=== PATIENT | female | born 1990 | race Two or more races ===

== ENCOUNTER 2019-06-16 15:50 | Emergency (ER) | payer MEDICAID, OTHER ==
[~2019-06-16] VITALS: Ht 165.1 cm; Wt 72.6 kg
[2019-06-16 15:58] VITALS: BP 147/87
== END 2019-06-16 17:33 | disposition home or self-care (01) ==
LOC: ER 15:50
DX: J20.9 Acute bronchitis, unspecified (principal)

== ENCOUNTER 2021-01-22 16:14 | Emergency (ER) | payer MEDICAID ==
[~2021-01-22] VITALS: Ht 165.1 cm; Wt 73.5 kg
[2021-01-22 16:20] VITALS: BP 151/84
[2021-01-22] MEDS ORDERED: SODIUM CHLORIDE 0.9% 1,000 ML IV ONE (17:30)
[2021-01-22] MEDS ORDERED: LORazepam 0.5 MG TAB PO ONE (17:30)
[2021-01-22 18:50] LABS: Basophils # (auto) 0 10 ^3/uL (0-0.2); Basophils % (auto) 0.6 % (0.0-2.0); Eosinophils # (auto) 0.1 10 ^3/uL (0-0.8); Eosinophils % (auto) 1.3 % (0.0-7.0); Hematocrit 42.7 % (36.0-46.0); Lymphocytes # (auto) 3.7 10 ^3/uL (0.4-5.4); Lymphocytes % (auto) 43.6 % (10.0-50.0); Mean Corpuscular Hemoglobin 27.5 pg (28.0-32.0); Mean Corpuscular Hgb Conc. 32.8 g/dL (32.0-36.0); Mean Corpuscular Volume 83.8 fL (80.0-100.0); Monocytes # (auto) 0.6 10 ^3/uL (0-1.3); Monocytes % (auto) 7.6 % (0.0-12.0); Neutrophils % (auto) 46.9 % (37.0-80.0); Nucleated Red Blood Cells % 0.1 %; Red Cell Distribution Width 12.5 % (11.8-14.3); White Blood Cell 8.5 10^3/uL (4.4-10.8)
[2021-01-22 19:10] LABS: Albumin 3.8 g/dL (3.4-5.0); BUN/Creatinine Ratio 16.2; Calcium 9.6 mg/dL (8.5-10.1); Potassium 4.1 mmol/L (3.5-5.1)
[2021-01-22 19:13] LABS: Bilirubin, Total 0.3 mg/dL (0.2-1.0)
== END 2021-01-23 01:01 | disposition left against medical advice (07) ==
LOC: ER 16:14
DX: R06.00 Dyspnea, unspecified (principal); E11.9 Type 2 diabetes mellitus without complications; I10 Essential (primary) hypertension; F41.8 Other specified anxiety disorders
CPT/HCPCS: 36415; 71046; 80053; 83735; 84702; 85025; 85379; 93005

== ENCOUNTER 2023-09-20 04:54 | Emergency (ER) | payer MEDICAID ==
[~2023-09-20] VITALS: Ht 165.1 cm; Wt 63.6 kg
[2023-09-20] MEDS: ONDANSETRON ODT 4 MG TAB PO ONE (07:41)
[2023-09-20] MEDS: KETOROLAC TROMETH 60MG/2ML VIAL IM ONE (07:42)
[2023-09-20 07:48] LABS: Basophils # (auto) 0 10 ^3/uL (0-0.2); Basophils % (auto) 0.4 % (0.0-2.0); Eosinophils # (auto) 0.1 10 ^3/uL (0-0.8); Eosinophils % (auto) 1.4 % (0.0-7.0); Hematocrit 43.3 % (36.0-46.0); Hemoglobin 14.1 g/dL (12.2-16.2); Lymphocytes # (auto) 2.4 10 ^3/uL (0.4-5.4); Lymphocytes % (auto) 28.6 % (10.0-50.0); Mean Corpuscular Hemoglobin 27.7 pg (28.0-32.0); Mean Corpuscular Hgb Conc. 32.6 g/dL (32.0-36.0); Mean Corpuscular Volume 85.1 fL (80.0-100.0); Monocytes # (auto) 0.7 10 ^3/uL (0-1.3); Monocytes % (auto) 8.1 % (0.0-12.0); Neutrophils # (auto) 5.1 10 ^3/uL (1.6-8.6); Neutrophils % (auto) 61.5 % (37.0-80.0); Nucleated Red Blood Cells % 0.1 %; Red Blood Cells 5.09 10^6/uL (4.0-5.20); Red Cell Distribution Width 12.3 % (11.8-14.3); White Blood Cell 8.3 10^3/uL (4.4-10.8)
[2023-09-20 08:06] LABS: Urine Bacteria None Seen /hpf (None Seen)
[2023-09-20 08:14] LABS: Urine Blood TRACE /uL (Negative); Urine Clarity Clear (Clear); Urine Color Yellow (Yellow); Urine Mucus FEW (None Seen); Urine Protein, UAD TRACE (Negative); Urine Specific Gravity 1.031 (1.001-1.035); Urine Urobilinogen 3 mg/dL (Negative); Urine WBC 2 /hpf (0 - 5); Urine pH 5.5 (5.0-9.0)
[2023-09-20 08:38] LABS: Alanine Aminotransferase 38 U/L (7-40); Albumin 4.9 g/dL (3.2-4.8); Alkaline Phosphatase 72 U/L (46-116); Anion Gap 6 (5-15); Aspartate Aminotransferase 18 U/L (13-40); BUN/Creatinine Ratio 10.8 (10.0-20.0); Bilirubin, Total 0.6 mg/dL (0.2-1.0); Blood Urea Nitrogen 7 mg/dL (9-23); Calcium 9.8 mg/dL (8.5-10.1); Carbon Dioxide 26 mmol/L (20-30); Chloride 106 mmol/L (98-107); Glucose 113 mg/dL (74-106); Magnesium 1.9 mg/dL (1.6-2.6); Potassium 3.6 mmol/L (3.5-5.1); Sodium 138 mmol/L (136-145); Total Protein 7.9 g/dL (5.7-8.2)
[2023-09-20 08:56] LABS: Lipase 54 U/L (12-53)
[2023-09-20 09:30] VITALS: PULSE 77; RESP 14; O2SAT 98
[2023-09-20] MEDS ORDERED: NAP500T PO (09:50)
[2023-09-20 09:58] VITALS: BP 116/78; PULSE 74; RESP 16; TEMP 97.8; O2SAT 100
== END 2023-09-20 09:59 | disposition home or self-care (01) ==
LOC: ER 04:54
DX: R10.11 Right upper quadrant pain (principal); R10.2 Pelvic and perineal pain; E11.9 Type 2 diabetes mellitus without complications; Z88.0 Allergy status to penicillin; Z88.1 Allergy status to other antibiotic agents
CPT/HCPCS: 36415; 76705; 80053; 81001; 83690; 83735; 84702; 85025; 96372; 99285; J1885; Q0162

== ENCOUNTER 2023-11-16 19:26 | Emergency (ER) | payer MEDICAID ==
[~2023-11-16] VITALS: Ht 165.1 cm; Wt 69.8 kg
[~2023-11-16 19:26] MED LIST: NAP500T PO
[2023-11-16 22:50] VITALS: BP 129/88; PULSE 99; RESP 20; TEMP 97.7; O2SAT 95
== END 2023-11-16 22:56 | disposition home or self-care (01) ==
LOC: ER 19:26
DX: G89.18 Other acute postprocedural pain (principal); M79.671 Pain in right foot; E11.9 Type 2 diabetes mellitus without complications; Z88.0 Allergy status to penicillin; Z88.1 Allergy status to other antibiotic agents
CPT/HCPCS: 73630

== ENCOUNTER 2024-02-26 19:32 | Emergency (ER) | payer MEDICAID ==
[~2024-02-26] VITALS: Ht 165.1 cm; Wt 73.6 kg
[2024-02-26] MEDS: KETOROLAC TROMETH 60MG/2ML VIAL IM ONE (19:54)
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
[2024-02-26] MEDS ORDERED: TIZA4TAB9 PO (21:03)
[2024-02-26] MEDS ORDERED: IBUP-1456 PO (21:03)
[2024-02-26 21:31] VITALS: BP 123/79; PULSE 95; RESP 17; TEMP 97.6; O2SAT 100
== END 2024-02-26 21:46 | disposition home or self-care (01) ==
LOC: ER 19:32
DX: S13.4XXA Sprain of ligaments of cervical spine, initial encounter (principal); S93.601A Unspecified sprain of right foot, initial encounter; E11.9 Type 2 diabetes mellitus without complications; Z88.0 Allergy status to penicillin; Z88.1 Allergy status to other antibiotic agents; V49.40XA Driver injured in collision with unspecified motor vehicles in traffic accident, initial encounter; Y93.89 Activity, other specified; Y92.410 Unspecified street and highway as the place of occurrence of the external cause; Y99.8 Other external cause status
CPT/HCPCS: 72040; 73630; 96372; 99284; J1885

== ENCOUNTER 2024-03-11 16:05 | Emergency (ER) | payer MEDICAID ==
[~2024-03-11] VITALS: Ht 165.1 cm; Wt 70.4 kg
--- NOTE | 2024-03-11 17:23 | ED.PDOC ---
Musculoskeletal HPI Comments A 33 YEAR OLD FEMALE PRESENTS TO THE ED WITH COMPLAINT OF WOUND CHECK. PT HAD LEFT BUNION SURGERY DONE YESTERDAY AND PRESENTS TO ED FOR DRY BLOOD OF THE WOUND UNDERNEATH THE SPLINT. PT STATES SHE CALLED THE SURGEON AND PT WAS REFERRED TO ED. CURRENT PAIN LEVEL 10/10. PT HAS OXYCODONE AT HOME BUT HAS NOT FELT RELIEF. ALSO, PT C/O RIGHT FOOT SPLINT TOO TIGHT AND CAUSED HER RIGHT FOOT PAIN. PATIENT DENIES FEVER, CHILLS, SHORTNESS OF BREATH, CHEST PAIN, ABDOMINAL PAIN, NAUSEA, VOMITING, HEADACHE, OR OTHER COMPLAINTS. NO OTHER SYMPTOMS OR MODIFYING FACTORS AT THIS TIME. PATIENT IS ALERT, ORIENTED X 4, AND HAS STEADY GAIT. Chief Complaint: Lower Extremity Time Seen by MD: 17:04 Primary Care Provider: Judy Chatman Notes: Nurses Notes, Medications, Allergies Allergies: Coded Allergies: Penicillins (Verified Allergy, Severe, RASH, 06/16/19) Vancomycin (Verified Allergy, Unknown, 09/20/23) Home Meds Active Scripts Naproxen (NAPROSYN TABLET) 500 Mg Tb, 1 TAB PO BID PRN, #20 TAB 1 Refill Prov:TAMIE MASON MD 09/20/23 Information Source: Patient Mode of Arrival: Wheelchair Location: Left Extremity Location: Foot Timing: Days Severity: Moderate Able to Move Extremity: Yes Bear Weight: No Pain: Moderate Mechanism: None Circumstances: Preceding Wound Onset of Symptoms: After Trauma Symptoms: Pain DVT Risk Factors: NONE Last Tetanus: UTD Associated signs and symptoms: Foot pain (LEFT) Past Medical History PAST MEDICAL HISTORY: DM Surgical History (Other): 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 Family History Family History: Unknown Social History Smoker: Non-Smoker Alcohol: Denies ETOH Use Drugs: Denies Drug Use Lives In: Home Constitutional: denies: chills, diaphoresis, fatigue, fever, malaise, sweats, weakness, others EENTM: denies: blurred vision, double vision, ear bleeding, ear discharge, ear drainage, ear pain, ear ringing, eye pain, eye redness, hearing loss, mouth pain, mouth swelling, nasal discharge, nose bleeding, nose congestion, nose pain, photophobia, tearing, throat pain, throat swelling, voice changes, others Respiratory: denies: cough, hemoptysis, orthopnea, SOB at rest, shortness of breath, SOB with excertion, stridor, wheezing, others Cardiovascular: denies: chest pain, dizzy spells, diaphoresis, Dyspnea on exertion, edema, irregular heart beat, left arm pain, lightheadedness, palpitations, PND, syncope, others Gastrointestinal: denies: abdomen distended, abdominal pain, blood streaked bowels, constipated, diarrhea, dysphagia, difficulty swallowing, hematemesis, melena, nausea, poor appetite, poor fluid intake, rectal bleeding, rectal pain, vomiting, others Genitourinary: denies: abnormal vagina bleeding, burning, dyspareunia, dysuria, flank pain, frequency, hematuria, incontinence, pain, , vagina discharge, urgency, others Neurological: denies: dizziness, fainting, headache, left sided numbness, left sided weakness, numbness, paresthesia, pre-existing deficit, right sided numbness, right sided weakness, seizure, speech problems, tingling, tremors, weakness, others Musculoskeletal: reports: joint pain (LEFT FOOT PAIN ), others (LEFT FOOT P AIN); denies: back pain, gout, joint swelling, muscle pain, muscle stiffness, neck pain Integumetry: denies: bruises, change in color, change in hair/nails, dryness, laceration, lesions, lumps, rash, wounds, others Allergic/Immunocompromised: denies: Difficulty Healing, Frequent Infections, Hives, Itching, others Hematologic/Lymphatic: denies: anemia, blood clots, easy bleeding, easy bruising, swollen glands, others Endocrine: denies: excessive hunger, excessive sweating, excessive thirst, excessive urination, flushing, intolerance to cold, intolerance to heat, unexplained weight gain, unexplained weight loss, others Psychiatric: denies: anxiety, bipolar disorder, depression, hopeless, panic disorder, schizophrenia, sleepless, suicidal, others All Other Systems: Reviewed and Negative Physical Exam General Appearance: No Apparent Distress, Normal HEENT: Normal ENT Inspection, PERRL/EOMI, Pharynx Normal, TMs Normal Neck: Full Range of Motion, Non-Tender, Normal, Normal Inspection Respiratory: Chest Non-Tender, Lungs Clear, No Accessory Muscle Use, No Respiratory Distress, Normal Breath Sounds Cardiovascular: No Edema, No JVD, No Murmur, No Gallop, Normal Peripheral Pulses, Regular Rate/Rhythm Breast Exam: Deferred Gastrointestinal: No Organomegaly, Non Tender, No Pulsatile Mass, Normal Bowel Sounds, Soft Genitalia: Deferred Pelvic: Deferred Rectal: Deferred Extremities: Decreased range of motion, No calf tenderness, Normal capillary refill, Normal inspection, No pedal edema, Tender (ON LEFT GREAT TOE REGION, NO REDNESS, SWELLING AND DEFORMITY, INCISION WOUND HEALING, NO INFECTION SIGNS. NEUROVASCULAR INTACT. ) Musculoskeletal : Apperance: Normal Neurologic: Alert, tool maker II-XII nml as Tested, No Motor Deficits, Normal Affect, Normal Mood, No Sensory Deficits Cerebellar Function: Normal Reflexes: Normal Skin: Dry, Normal Color, Warm, Wounds (INCISION WOUND HEALING, NO BLEEDING AND BLOOD CLOTS, NO ERYTHEMA AND SWELLING ON INCISION REGION. ) Peripheral Pulses: 2+ carotid (R), 2+ carotid (L), 2+ dorsalis pedis (R), 2+ dorsalis pedis (L) Lymphatic: No Adenopathy Was a procedure done? Was a procedure done?: No Differential Diagnosis EXT Differential Diagnosis: Other (WOUND CHECK) X-Ray, Labs, Meds, VS Vital Signs Date Time Temp Pulse Resp B/P (MAP) Pulse Ox O2 Delivery O2 Flow Rate FiO2 03/11/24 16:44 98.9 82 16 126/89 (101) 100 X-Ray, Labs, Meds, VS Comment COURSE: EXTERNAL MEDICAL RECORDS REVIEWED: [NONE] INDEPENDENT HISTORIANS: [NONE] SOCIAL DETERMINANTS OF HEALTH: [NONE] LABS ORDERED: NONE REVIEWED AND INTERPRETED RESULTS: NONE IMAGING ORDERED: NONE TREATMENTS ORDERED: SPLINT WAS PLACED ON TOO TIGHT AFTER SURGERY, REMOVED HERE IN ED. WOUND HEALING WELL. NO BLEEDING, REDNESS, OR SWELLING. PT FELT IMMEDIATE RELIEF ONCE SPLINT WAS REMOVED AND NO LONGER NEEDED PAIN MEDS. NEW SPLINT PLACED ON LEFT LOWER EXTREMITY. PROCEDURES PERFORMED: NONE CRITICAL CARE TIME: NONE I HAVE DISCUSSED THE PATIENT WITH THE ATTENDING PHYSICIAN DR. MICHAEL BUTTS AND SHE AGREES WITH THE PATIENT'S PLAN OF CARE AND DISPOSITION. GIVEN THE HISTORY AND PRESENT ILLNESS OF THE PATIENT, AFTER REVIEWING LABS, IMAGING, AND COURSE OF TREATMENT ADMINISTERED DURING THEIR ED VISIT, THERE IS LOW SUSPICION FOR RED FLAG FINDINGS. BASED ON HISTORY OF PRESENT ILLNESS, AND PHYSICAL EXAM, PATIENT WILL BE DISCHARGED HOME. DISCUSSED PLAN FOR DISCHARGE HOME WITH RX. MEDICATION WARNINGS GIVEN. SHARED DECISION MAKING: DISCUSSED WITH PATIENT THAT THEIR WORKUP WAS NORMAL. PATIENT INSTRUCTED TO FOLLOW UP WITH PRIMARY CARE PROVIDER IN 1-2 DAYS FOR RE- EVALUATION OF SYMPTOMS. PATIENT VERBALIZES UNDERSTANDING TO RETURN TO ED FOR NEW OR WORSENING SYMPTOMS OR IF FOLLOW UP WITH PCP CANNOT BE OBTAINED. PATIENT FEELS COMFORTABLE GOING HOME AT THIS TIME. ALL QUESTIONS ADDRESSED AT TIME OF DISCHARGE. Time of 1ST Reevaluation: 17:20 Reevaluation 1ST: Improved Patient Education/Counseling: Diagnosis, Treatment, Need For Follow Up Family Education/Counseling: Diagnosis, Treatment, Need For Follow Up Medical Screening: No EMC Exist At This Time Departure 1 Departure Time of Disposition: 17:34 Impression: Primary Impression: Encounter for cast care Additional Impression: Encounter for wound re-check Disposition: 01 HOME / SELF CARE / HOMELESS Condition: Stable Additional Instructions: FOLLOW-UP WITH PCP IN 1 TO 2 DAYS. TAKE MEDICATIONS PRESCRIBED. RETURN TO ED FOR ANY NEW OR WORSENING SYMPTOMS. Discharged With: Self, Relative Critical Care Note Critical Care Time?: No Stability Stability form required: No Heart Score Heart Score: Heart Score Response (Comments) Value History N/A 0 EKG N/A 0 Age N/A 0 Risk Factors N/A 0 Troponin N/A 0 Total 0 I personally scribed for MALA RIVERA ([email or web address]) on 03/11/24 at 17:23. Electronically submitted by Iram Ga ([email or web address]). I personally scribed for MALA RIVERA ([email or web address]) on 03/11/24 at 17:24. Electronically submitted by Iram Ga ([email or web address]). MALA RIVERA Mar 11, 2024 17:23
[2024-03-11 17:26] VITALS: BP 126/89; PULSE 82; RESP 16; TEMP 98.9; O2SAT 100
== END 2024-03-11 17:45 | disposition home or self-care (01) ==
LOC: ER 16:05
DX: T81.89XA Other complications of procedures, not elsewhere classified, initial encounter (principal); M79.671 Pain in right foot; E11.9 Type 2 diabetes mellitus without complications; Z46.89 Encounter for fitting and adjustment of other specified devices; Z48.01 Encounter for change or removal of surgical wound dressing; Z98.890 Other specified postprocedural states; Z88.0 Allergy status to penicillin; Z88.1 Allergy status to other antibiotic agents; Z79.899 Other long term (current) drug therapy; Y92.89 Other specified places as the place of occurrence of the external cause
CPT/HCPCS: 29515